=== PATIENT | female | born 1980 ===

== ENCOUNTER 2017-07-25 09:59 | Inpatient (IN) | payer MEDICAID, OTHER ==
[2017-07-25 10:12] VITALS: BMI 28.3
--- NOTE | 2017-07-25 10:43 | C.PDOC ---
History Of Present Illness 37 year old female presents to the ED requesting heroin detox. Patient states her last use was yesterday. Contrary to triage, patient denies tongue pain and stomach pain at this time. She also denies recent illness, drooling, throat tightness, throat swelling, suicidal/homicidal ideation. Time Seen by Provider: 07/25/17 10:27 Chief Complaint (Nursing): Substance Abuse History Per: Patient History/Exam Limitations: no limitations Onset/Duration Of Symptoms: Hrs Current Symptoms Are (Timing): Still Present Suicide/Self Injury Attempted (Context): None Modifying Factor(s): Narcotics (heroin ) Associated Symptoms: denies: Suicidal Thoughts, Suicidal Plan Involuntary Hold By: None Recent travel outside of the [place]: No Additional History Per: Patient Past Medical History Reviewed: Historical Data, Nursing Documentation, Vital Signs Vital Signs: Last Vital Signs Temp 97.9 F 07/30/17 08:45 Pulse 90 07/30/17 08:45 Resp 20 07/30/17 08:45 BP 109/74 07/30/17 08:45 Pulse Ox 97 07/30/17 08:45 - Medical History PMH: Asthma, Schizophrenia Denies: Diabetes, Hepatitis, HIV, HTN, Chronic Kidney Disease, Seizures, Sexually Transmitted Disease Surgical History: Appendectomy - [facility] Procedures LAPAROSCOP LYSIS-PERITONEAL ADHES (03/30/13) LAPAROSCOP UNILAT OOPHORECTOMY (03/30/13) OTH LAPAROSCOP LOCAL EXCIS/DESTRUCT OVARY (03/30/13) OTHER GROUP THERAPY (10/10/12) Family History: States: Unknown Family Hx - Social History Hx Tobacco Use: No Hx Alcohol Use: No Hx Substance Use: Yes (heroin) - Immunization History Hx Tetanus Toxoid Vaccination: Yes Hx Influenza Vaccination: Yes Hx Pneumococcal Vaccination: Yes Review Of Systems ENT: Negative for: Throat Pain, Throat Swelling, Other (tongue pain ) Gastrointestinal: Negative for: Abdominal Pain Psych: Positive for: Other (heroin detox). Negative for: Suicidal ideation Physical Exam - Physical Exam Appears: Well, Non-toxic, No Acute Distress Skin: Normal Color, Warm, Dry, No Rash Head: Normacephalic, No Tenderness Eye(s): bilateral: PERRL, EOMI Nose: No Flaring, No Discharge, No Deformity, No Tenderness Oral Mucosa: Moist Tongue: Normal Appearing Lips: Normal Appearing Throat: No Erythema, No Drooling Neck: Trachea Midline, Supple Cardiovascular: Rhythm Regular, No Murmur, No JVD Respiratory: No Decreased Breath Sounds, No Accessory Muscle Use, No Stridor, No Wheezing Gastrointestinal/Abdominal: Soft, No Tenderness, No Distention, No Guarding Back: No CVA Tenderness Extremity: Normal ROM, No Deformity, No Swelling Neurological/Psych: Oriented x3, Normal Speech, Normal Motor, Normal Sensation, Normal Reflexes ED Course And Treatment - Laboratory Results Result Diagrams: 07/25/17 12:05 07/25/17 12:05 O2 Sat by Pulse Oximetry: 96 (on RA ) Pulse Ox Interpretation: Normal Progress Note: Pt remained stable during the ED evaluation. Blood work review and appears without acute findings. UA (+) UTI. Pt was evaluated by PES and admission arranged to psych floor with Dx: Schizoafective, opioid dependance, UTI. Disposition - Disposition Disposition: HOSPITALIZED Disposition Time: 13:10 Condition: STABLE - Clinical Impression Clinical Impression: Drug dependence, UTI (urinary tract infection), Schizoaffective disorder - PA / ADJUNCT INSTRUCTOR IN ECONOMICS / Resident Statement MD/DO has reviewed & agrees with the documentation as recorded. - Scribe Statement The provider has reviewed the documentation as recorded by the Scribe (Leslie Gamez) All medical record entries made by the Scribe were at my direction and personally dictated by me. I have reviewed the chart and agree that the record accurately reflects my personal performance of the history, physical exam, medical decision making, and the department course for this patient. I have also personally directed, reviewed, and agree with the discharge instructions and disposition.
[2017-07-25 12:19] LABS: BASO # 0.1 K/uL (0.0-0.2); BASO % 1.9 % (0.0-2.0); EOS # 0.4 K/uL (0.0-0.7); EOS % 5.3 % (0.0-4.0); HEMOGLOBIN 14.4 g/dL (11.0-16.0); LYMPH # 1.8 K/uL (1.0-4.3); LYMPH % 24.5 % (20.0-40.0); MEAN CELL VOLUME 87.4 fL (81.0-99.0); MEAN CORPUSCULAR HEMOGLOBIN 30.1 pg (27.0-31.0); MEAN CORPUSCULAR HGB CONC 34.4 g/dL (33.0-37.0); MONO # 0.9 K/uL (0.0-0.8); MONO % 12.9 % (0.0-10.0); NEUT % 55.4 % (50.0-75.0); NRBC % 0.1 % (0.0-2.0); RBC 4.78 Mil/uL (3.80-5.20); WHITE BLOOD COUNT 7.3 K/uL (4.8-10.8)
[2017-07-25 12:25] LABS: HCG,QUALITATIVE URINE NEGATIVE (NEGATIVE)
[2017-07-25 12:30] LABS: SQUAMOUS EPITHIAL 1 /hpf (0-5); URINE BACTERIA MOD (<OCC); URINE BILIRUBIN NEGATIVE (NEGATIVE); URINE BLOOD 1+ (NEGATIVE); URINE CLARITY Hazy (Clear); URINE COLOR Yellow (YELLOW); URINE GLUCOSE (UA) NORMAL (Normal); URINE LEUKOCYTE ESTERASE 3+ Leu/uL (Negative); URINE PROTEIN NEGATIVE (NEGATIVE); URINE UROBILINOGEN NORMAL mg/dL (0.2-1.0)
[2017-07-25 12:33] LABS: ALBUMIN 4.3 g/dL (3.5-5.0); ALT/SGPT 35 U/L (9-52); AST/SGOT 33 U/L (14-36); BLOOD UREA NITROGEN 12 mg/dL (7-17); CALCIUM 8.8 mg/dl (8.6-10.4); GFR AFRICAN-AMERICAN > 60; GFR NON-AFRICAN AMERICAN > 60
[2017-07-25 12:51] LABS: BARBITURATES, UR NEGATIVE (NEGATIVE); PHENCYCLIDINE, UR NEGATIVE (NEGATIVE)
[2017-07-25 13:28] LABS: BENZODIAZEPINES, UR POSITIVE (NEGATIVE); OPIATES, UR POSITIVE (NEGATIVE)
--- NOTE | 2017-07-25 17:05 | PCM.BM ---
<Teresa,Nafisa - Last Filed: 07/25/17 17:04> Treatment Plan Problems - Problems identified on initial assessmt Depression Date Initiated: 07/25/17 Time Initiated: 17:04 Assessment reference: NA Status: Active Comment: long hx of drug abuse - heroin, cocaine, thc Treatment assets and liabiliti Patient Assests: adapts well, cooperative, self-reliant, ADL independent Patient Liabilities: live alone, medical problems - Milieu Protocol Maintain good personal hygiene: daily Encourage regular showers, daily Remind patient to perform daily oral care Conduct patient checks and document Observation sheet: Q15 minutes Maintain personal safety: every shift Educate patient to report safety concerns to staff, every shift Monitor environment for contraband/sharps Medication safety: Monitor for expected outcome, potential side effects: every shift, Assess barriers to learning: every shift, Assess readiness for medication education: every shift <DaeVioletta - Last Filed: 07/29/17 11:06> - Diagnosis (1) Bipolar disorder with psychotic features Status: Acute Interventions: 07/29/17 11:05 * Assess/adjust medications daily and /or as needed * See patient on an individual basis 7x/week to assess level of manic behaviors and stability * Discuss risks, benefits, side effects and alternatives of medications * (2) Opioid use disorder, severe, dependence Status: Acute Interventions: 07/29/17 11:06 * Assess 7x/week regarding severity of withdrawal * Educate regarding risks, benefits, side effects and alternatives of medications * Use Motivational Interviewing for abstinence * Use CBT for relapse prevention * Medication management for withdrawal symptoms * Encourage medication assisted treatment * <Sonal Barnes - Last Filed: 07/29/17 11:11> Family Contact Family involvement: Famliy/SO not involved - Goals for Treatment Patient goals for treatment: "I want to go to a short term rehab." Discharge/Continuing Care - Education Needs Education Needs: Patient Medication, Patient Coping Skills, Patient Placement options, Patient Community resources - Discharge Discharge Criteria: Tolerates medication w/o severe side effects, Reduction of target symptoms Discharge to:: Substance Abuse Rehab - Treatment Team Participation Discussed with Family/SO: No Was Patient/Family/SO present at Treatment Team Meeting: Yes
[2017-07-25] MEDS: guaiFENesin 100 mg/5 ml Syrup UD PO PRN (23:19)
[2017-07-25] MEDS: Albuterol HFA 90 mcg/actuation (8 g) INH PRN (23:20)
[2017-07-26] MEDS: Albuterol HFA 90 mcg/actuation (8 g) INH PRN ×4 (01:55→21:55)
[2017-07-26] MEDS: Albuterol-Ipratrop 3 mg / 0.5 (3 ml) UD INH PRN ×3 (02:02→19:12)
--- NOTE | 2017-07-26 11:44 | PCM.PSYCH ---
Initial Psychiatric Evaluation - Initial Psychiatric Evaluation Type of Admission: Voluntary Legal Status: Capacity Chief Complaint (in patient's own words): "I feel tired" History of Present Illness and Precipitating Events: 37 year old female with past medical history of asthma, schizophrenia, psychosis and anxiety, single, 2 children (13yo, 18yo), homeless and currently not working. Patient states she has not been taking her psych medications for the past 2 years. She states she brought herself to the hospital yesterday because she wanted to detox from heroin and get better. She states her mind sometimes feels like its racing and she sees things, she states sometimes she will states she lives in a home and the house is not located there. She denies thought of hurting herself, hurting others or audio hallucinations. She admits to using a bundle of heroin (snorting) per day (her last use was 2 days ago) and cocaine 2 lines (snorts, previously used 2 days ago). Medical History: Asthma Psych History: schizophrenia, psychosis and anxiety Family History: denies Allergies: NKDA Current Medications: Active Medications Generic Name Dose Route Start Last Admin Trade Name Freq PRN Reason Stop Dose Admin Al Hydrox/Mg Hydrox/Simethicone 30 ml 07/25/17 22:00 Maalox 30 Ml PO TID PRN Indigestion / Heartburn Albuterol 1 puff 07/25/17 16:11 07/26/17 08:04 Ventolin Hfa 90 Mcg/Actuation (8 G) INH 1 puff RQ4 PRN Administration Shortness of Breath Albuterol/Ipratropium 3 ml 07/25/17 16:15 07/26/17 02:02 Duoneb 3 Mg/0.5 Mg (3 Ml) Ud INH 3 ml RQ4 PRN Administration Shortness of Breath Benzocaine/Menthol 1 turner 07/25/17 22:14 Cepacol Sore Throat MT Q6 PRN Sore Throat Clonidine HCl 0.1 mg 07/25/17 21:55 Catapres PO Q8 PRN COWS Score More or Equal to 5 Guaifenesin 100 mg 07/25/17 18:29 07/25/17 23:19 Robitussin PO 100 mg Q4H PRN Administration Cough Loperamide HCl 2 mg 07/25/17 22:00 Imodium PO Q8 PRN Diarrhea Methadone HCl 15 mg 07/26/17 10:00 07/26/17 09:56 Methadone PO 07/29/17 09:59 15 mg DAILY YARITZA Administration Taper Nitrofurantoin Macrocrystals 100 mg 07/26/17 10:00 07/26/17 09:43 Macrobid PO 100 mg Q12H YARITZA Administration Protocol Ondansetron HCl 4 mg 07/25/17 21:55 Zofran Tab PO Q8 PRN Nausea/Vomiting Past Psychiatric History - Past Psychiatric History Pertinent Medical Hx (Current Medical&Sleep Prob, Allergies): Allergies Allergy/AdvReac Type Severity Reaction Status Date / Time No Known Allergies Allergy Verified 07/25/17 10:10 No Known Home Med 07/25/17 Review of Systems - Cardiovascular Cardiovascular: UNREMARKABLE - Gastrointestinal Gastrointestinal: UNREMARKABLE - Neurological Neurological: UNREMARKABLE - Psychiatric Psychiatric: Anxiety. absent: Homicidal Ideation, Suicidal Ideation Mental Status Examination - Personal Presentation Personal Presentation: Looks stated age - Affect Affect: Constricted - Motor Activity Motor Activity: Calm - Reliability in Providing Information Reliability in Providing Information: Good - Speech Speech: Organized - Mood Mood: Anxious - Formal Thought Process Formal Thought Process: No Impairment - Hallucinations/Delusions Hallucinations: Visual - Cognitive Functions Orientation: Person, Place, Situation, Time Sensorium: Alert Attention/Concentration: Attentive Judgement: Intact, as evidence by: Insight regarding need for hospitalization Memory: Recent intact, as evidence by: Ability to recall events of the day DSM 5 DX - DSM 5 DSM 5 Diagnosis: Bipolar disorder r/o Schizophrenia Psychosis disorder Opioid withdrawal Opioid use d/o - severe Cocaine withdrawal Cocaine use d/o - severe - Recommended/Plan of Treatment Treatment Recommendations and Plan of Treatment: Methadone detox Albuterol As needed medications All risks, benefits and alternatives of the meds discussed, and the pt agreed and understood. Attend groups and activities Supportive therapy and psychoeducation [place] for abstinence CBT for relapse prevention Encourage MAT Refer to rehab or IOP, and self-help groups 34 min
[2017-07-26] MEDS: Benzocaine/Menthol (Cepacol) Lozenge MT PRN ×2 (13:50→16:50)
[2017-07-26] MEDS: guaiFENesin 100 mg/5 ml Syrup UD PO PRN (16:49)
[2017-07-27] MEDS: Albuterol-Ipratrop 3 mg / 0.5 (3 ml) UD INH PRN ×3 (00:20→18:21)
[2017-07-27] MEDS: Benzocaine/Menthol (Cepacol) Lozenge MT PRN ×4 (02:29→23:12)
[2017-07-27] MEDS: Albuterol HFA 90 mcg/actuation (8 g) INH PRN ×5 (02:29→23:10)
[2017-07-27] MEDS: Aluminum Hydroxide/Magnesium Hydroxide Susp (30 mL) PO PRN (09:09)
[2017-07-27] MEDS: guaiFENesin 100 mg/5 ml Syrup UD PO PRN ×2 (11:08→21:13)
--- NOTE | 2017-07-27 13:38 | PCM.PYCHPN ---
Psychiatric Progress Note - Psychiatric Progress Note Patient seen today, length of contact: 15 minutes Patient Chief Complaint: I'm feeling little better. Problems Identified/Issues Discussed: Patient seen, chart reviewed, case discussed with the staff. Issues related to illness and treatment were discussed with the patient. Reported compliant with treatment with no adverse affects. Reported feeling little better. Mood reported as okay. Affect appropriate. Patient is becoming better, needs more time. Stabilization. Awake alert oriented 3, no delusions, no auditory or visual hallucinations, no suicidal ideations or homicidal ideations at the time of evaluation. Medical Problems: Asthma Diagnostic Results: Reviewed DSM 5 Symptoms Update: Some improvement with treatment Medication Change: No Medical Record Reviewed: Yes Mental Status Examination - Cognitive Function Orientation: Person, Place, Situation, Time Memory: Intact Attention: WNL Concentration: WNL Association: WNL Fund of Knowledge: WNL - Mood Mood: Depressed (Appropriate), Anxious - Affect Affect: Other - Speech Speech: Appropriate - Formal Thought Process Formal Thought Process: No Impairment Psychotic Thoughts and Behaviors: None - Suicidal Ideation Suicidal Ideation: No - Homicidal Ideation Homicidal Ideation: No Goal/Treatment Plan - Goal/Treatment Plan Need for Continued Stay: Remain at risks for inpatient hospitalization, Discharge may exacerbated symptoms, Severe functional impairment Progress Toward Problem(s) and Goals/Treatment Plan: Improving Patient education Supportive therapy Continue treatment as before Patient will get help from social welfare administrator for aftercare. Estimated Date of D/C: 08/02/17 - Smoking Cessation Smoking Cessation Initiated: No
[2017-07-27] MEDS: QUEtiapine 200 mg XR Tab PO SCH (21:13)
[2017-07-28] MEDS: Albuterol-Ipratrop 3 mg / 0.5 (3 ml) UD INH PRN ×2 (06:20→16:00)
[2017-07-28] MEDS: Benzocaine/Menthol (Cepacol) Lozenge MT PRN (10:11)
[2017-07-28] MEDS: Albuterol HFA 90 mcg/actuation (8 g) INH PRN ×2 (10:26→22:20)
[2017-07-28] MEDS: Aluminum Hydroxide/Magnesium Hydroxide Susp (30 mL) PO PRN (10:30)
--- NOTE | 2017-07-28 11:27 | PCM.PYCHPN ---
Psychiatric Progress Note - Psychiatric Progress Note Patient seen today, length of contact: 15 minutes Patient Chief Complaint: I'm feeling much better. Problems Identified/Issues Discussed: Patient seen, chart reviewed, case discussed with the staff. Issues related to illness and treatment were discussed with the patient. Reported compliant with treatment with no adverse affects. Reported feeling much better. Reported some cramps and abdominal pain sometime feeling nausea. Mood reported as okay. Affect appropriate. Patient is becoming better, needs more time. Stabilization. Awake alert oriented 3, no delusions, no auditory or visual hallucinations, no suicidal ideations or homicidal ideations at the time of evaluation. Medical Problems: Asthma UTI Diagnostic Results: Reviewed DSM 5 Symptoms Update: Improving with treatment Medication Change: Yes (Started Bentyl) Medical Record Reviewed: Yes Mental Status Examination - Cognitive Function Orientation: Person, Place, Situation, Time Memory: Intact Attention: WNL Concentration: WNL Association: WN Fund of Knowledge: [facility] Decription of patient's judgement and insights: Fair - Mood Mood: Depressed (Less than before) - Affect Affect: Other - Speech Speech: Appropriate - Formal Thought Process Formal Thought Process: No Impairment Psychotic Thoughts and Behaviors: None - Suicidal Ideation Suicidal Ideation: No - Homicidal Ideation Homicidal Ideation: No Goal/Treatment Plan - Goal/Treatment Plan Need for Continued Stay: Remain at risks for inpatient hospitalization, Discharge may exacerbated symptoms, Severe functional impairment Progress Toward Problem(s) and Goals/Treatment Plan: Improving Patient education Supportive therapy Continue treatment as before Patient will get help from licensed master social worker for aftercare. Estimated Date of D/C: 08/02/17 - Smoking Cessation Smoking Cessation Initiated: No
[2017-07-28] MEDS: QUEtiapine 200 mg XR Tab PO SCH (21:10)
[2017-07-28] MEDS: guaiFENesin 100 mg/5 ml Syrup UD PO PRN (22:19)
[2017-07-29] MEDS: Albuterol HFA 90 mcg/actuation (8 g) INH PRN ×3 (01:46→17:15)
[2017-07-29] MEDS: Benzocaine/Menthol (Cepacol) Lozenge MT PRN ×2 (01:47→21:07)
[2017-07-29 05:34] VITALS: RESP 20
[2017-07-29] MEDS: Albuterol-Ipratrop 3 mg / 0.5 (3 ml) UD INH PRN ×2 (09:50→22:40)
--- NOTE | 2017-07-29 11:06 | PCM.PYCHPN ---
Psychiatric Progress Note - Psychiatric Progress Note Patient seen today, length of contact: 15 minutes Medication Change: Yes (Started Bentyl) Medical Record Reviewed: Yes Mental Status Examination - Cognitive Function Orientation: Person, Place, Situation, Time Memory: Intact Attention: WNL Concentration: WNL Association: WNL Fund of Knowledge: WNL - Mood Mood: Depressed (Less than before) - Affect Affect: Other - Speech Speech: Appropriate - Formal Thought Process Formal Thought Process: No Impairment - Suicidal Ideation Suicidal Ideation: No - Homicidal Ideation Homicidal Ideation: No Goal/Treatment Plan - Goal/Treatment Plan Need for Continued Stay: Remain at risks for inpatient hospitalization, Discharge may exacerbated symptoms, Severe functional impairment Estimated Date of D/C: 08/02/17
[2017-07-29] MEDS ORDERED: hydrOXYzine HCl 25 mg/ml Inj IM PRN ×2 (16:32→18:00)
[2017-07-30] MEDS: Albuterol HFA 90 mcg/actuation (8 g) INH PRN ×3 (03:37→16:22)
[2017-07-30] MEDS: guaiFENesin 100 mg/5 ml Syrup UD PO PRN (07:37)
[2017-07-30 08:45] VITALS: TEMP 97.9
[2017-07-30] MEDS: Multiple Vitamins Tab PO SCH (10:08)
[2017-07-30] MEDS: Albuterol-Ipratrop 3 mg / 0.5 (3 ml) UD INH PRN (10:49)
--- NOTE | 2017-07-30 14:41 | PCM.PYCHPN ---
Psychiatric Progress Note - Psychiatric Progress Note Patient seen today, length of contact: 15 minutes Patient Chief Complaint: I was feeling depressed. Problems Identified/Issues Discussed: Patient seen and evaluated, chart reviewed and discussed with the nurse. She reports feeling better. She reports she is sleeping okay and has no issues with eating today. Patient is compliant with medications and denies any side effects. Symptoms are improving but needs more time to stabilize. Support and psychoeducation given. Medication Change: Yes (Started Bentyl) Medical Record Reviewed: Yes Mental Status Examination - Cognitive Function Orientation: Person, Place, Situation, Time Memory: Intact Attention: WNL Concentration: WNL Association: WNL Fund of Knowledge: WN - Mood Mood: Depressed (Less than before) - Affect Affect: Other - Speech Speech: Appropriate - Formal Thought Process Formal Thought Process: No Impairment - Suicidal Ideation Suicidal Ideation: No - Homicidal Ideation Homicidal Ideation: No Goal/Treatment Plan - Goal/Treatment Plan Need for Continued Stay: Remain at risks for inpatient hospitalization, Discharge may exacerbated symptoms, Severe functional impairment Estimated Date of D/C: 08/02/17
[2017-07-30] MEDS: Benzocaine/Menthol (Cepacol) Lozenge MT PRN (18:00)
[2017-07-30] MEDS: Albuterol-Ipratrop 3 mg / 0.5 (3 ml) UD INH SCH ×2 (18:35→21:25)
[2017-07-31] MEDS: Albuterol HFA 90 mcg/actuation (8 g) INH PRN ×2 (00:40→06:31)
[2017-07-31] MEDS: Benzocaine/Menthol (Cepacol) Lozenge MT PRN (00:43)
[2017-07-31] MEDS: guaiFENesin 100 mg/5 ml Syrup UD PO PRN (03:28)
[2017-07-31] MEDS: Albuterol-Ipratrop 3 mg / 0.5 (3 ml) UD INH SCH ×3 (03:29→09:02)
[2017-07-31 06:30] VITALS: BP 105/70; PULSE 80; O2SAT 95
[2017-07-31] MEDS: Multiple Vitamins Tab PO SCH (09:08)
--- NOTE | 2017-07-31 10:06 | PCM.PYCHDC ---
Mental Status Examination - Mental Status Examination Orientation: Person, Place, Situation, Time Memory: Intact Mood: Neutral Affect: Constricted Speech: Soft Attention: WNL Concentration: WNL Association: WNL Fund of Knowledge: WNL Formal Thought Process: No Impairment Suicidal Ideation: No Current Homicidal Ideation?: No Discharge Summary - Discharge Note Reason for Hospitalization: 37 year old female with past medical history of asthma, schizophrenia, psychosis and anxiety, single, 2 children (13yo, 18yo), homeless and currently not working. Patient states she has not been taking her psych medications for the past 2 years. She states she brought herself to the hospital yesterday because she wanted to detox from heroin and get better. She states her mind sometimes feels like its racing and she sees things, she states sometimes she will states she lives in a home and the house is not located there. She denies thought of hurting herself, hurting others or audio hallucinations. She admits to using a bundle of heroin (snorting) per day (her last use was 2 days ago) and cocaine 2 lines (snorts, previously used 2 days ago). Medical History: Asthma Psych History: schizophrenia, psychosis and anxiety Family History: denies Consultations:: List each consultation separately and include: 1. Reason for request. 2. Findings. 3. Follow-up Summary of Hospital Course include:: 1. Description of specific treatment plan utilized for patients during their course of treatmen. 2. Summarize the time- course for resolution of acute symptoms and/or regressed behaviors. 3. Describe issues identified and worked on during hospitalization. 4. Describe medication utilized. 5. Describe medical problems identified and treated. 6. Reassessment of suicide risk - Diagnosis (1) Bipolar disorder with psychotic features Current Visit: Yes Status: Acute (2) Opioid use disorder, severe, dependence Current Visit: Yes Status: Acute - Final Diagnosis (DSM 5) Condition upon Discharge: STABLE DSM 5: Bipolar disorder r/o Schizophrenia Psychosis disorder Opioid withdrawal Opioid use d/o - severe Cocaine withdrawal Cocaine use d/o - severe Disposition: HOME/ ROUTINE Prescriptions/Medication Reconciliation: Albuterol HFA [Ventolin HFA 90 mcg/actuation (8 g)] 1 puff INH RQ4 PRN #1 inhaler PRN Reason: Shortness Of Breath Multivitamins [Hexavitamin] 1 tab PO DAILY #30 tab QUEtiapine [SEROquel] 200 mg PO BID #60 tab traZODone [Desyrel] 50 mg PO HS PRN #30 tab PRN Reason: Sleep
== END 2017-07-31 10:50 | disposition home or self-care (01) | DRG 885 ==
LOC: C.ER 09:59 → C.5E 13:57 → OBSVTOIN 13:57 → C.5E 14:27
PROVIDERS: ADMIT Psychiatry & Neurology Psychiatry; ATTEND Psychiatry & Neurology Psychiatry
PROC: GZ56ZZZ Individual Psychotherapy, Supportive (ICD-10-PCS; principal; 2017-07-25)
PROC: HZ2ZZZZ Detoxification Services for Substance Abuse Treatment (ICD-10-PCS; 2017-07-25)
PROC: HZ81ZZZ Medication Management for Substance Abuse Treatment, Methadone Maintenance (ICD-10-PCS; 2017-07-25)
PROC: HZ36ZZZ Individual Counseling for Substance Abuse Treatment, Psychoeducation (ICD-10-PCS; 2017-07-25)
DX: F31.9 Bipolar disorder, unspecified (principal); F11.23 Opioid dependence with withdrawal; N39.0 Urinary tract infection, site not specified; F14.23 Cocaine dependence with withdrawal; F25.9 Schizoaffective disorder, unspecified; J45.909 Unspecified asthma, uncomplicated